=== PATIENT | male | born 1980 | race Caucasian/White ===

== ENCOUNTER 2019-01-03 15:21 | Emergency (ER) | payer BC ==
--- NOTE | 2019-01-03 16:50 | ER ---
Nurse's Notes [facility] Name: Hubert Link Age: 38 yrs Sex: Male : 1980 Arrival Date: 01/03/2019 Time: 15:28 Bed Waiting Private MD: Jarrod Chávez Diagnosis: Presentation: 01/03 15:29 Presenting complaint: Patient states: decreased urinary output and R flank pain that ss began at 1200 today. Pt reports history of kidney stones and reports it feels similar to the last. Transition of care: patient was not received from another setting of care. Onset of symptoms was January 03, 2019. Risk Assessment: Do you want to hurt yourself or someone else? Patient reports no desire to harm self or others. Initial Sepsis Screen: Does the patient meet any 2 criteria? No. Patient's initial sepsis screen is negative. Does the patient have a suspected source of infection? No. Patient's initial sepsis screen is negative. Care prior to arrival: None. 15:29 Method Of Arrival: Ambulatory ss 15:29 Acuity: KRISHNA 3 ss Historical: - Allergies: 15:30 No Known Allergies; ss - PMHx: 15:30 Recovering addict "no narcotics please"; ss - PSHx: 15:30 None; ss - Immunization history:: Adult Immunizations up to date. - Social history:: Smoking status: Patient/guardian denies using tobacco. - Ebola Screening: : Patient denies exposure to infectious person Patient denies travel to an Ebola-affected area in the 21 days before illness onset. Screenin:20 Abuse screen: Denies threats or abuse. Denies injuries from another. Nutritional ss screening: No deficits noted. Tuberculosis screening: Never had TB. Fall Risk None identified. Assessment: 16:20 Reassessment: Patient passed kidney stone while voiding in the restroom. symptoms have ss resolved completely. Pt states he is going home now. Vital Signs: 15:30 BP 145 / 116; Pulse 86; Resp 16; Temp 97.7(TE); Pulse Ox 99% on R/A; Weight 104.33 kg; ss Height 5 ft. 11 in. (180.34 cm); Pain 7/10; 15:30 Body Mass Index 32.08 (104.33 kg, 180.34 cm) ss ED Course: 15:28 Patient arrived in ED. mr 15:28 Jarrod Chávez MD is Private Physician. mr 15:29 Triage completed. ss 15:30 Arm band placed on right wrist. ss 16:49 No provider procedures requiring assistance completed. Patient did not have IV access ss during this emergency room visit. Administered Medications: No medications were administered Outcome: 16:49 Eloped from waiting room. ss 16:49 Patient left the ED. ss Signatures: Trish Marroquin Shelby, RN RN ss
== END 2019-01-03 16:49 | disposition left against medical advice (07) ==
LOC: ER 15:21
DX: R10.9 Unspecified abdominal pain (principal); Z87.442 Personal history of urinary calculi; Z53.21 Procedure and treatment not carried out due to patient leaving prior to being seen by health care provider
CPT/HCPCS: 99281